=== PATIENT | female | born 1995 | race Caucasian/White ===

== ENCOUNTER → 2016-04-20 | Outpatient (CLI) | payer OTHER ==
[~2016-04-20] MED LIST: BUPIVACAINE 0.25% 30 ML (SENSORCAINE) VIAL ONE; CEPH-507 PO; HYDR-3812 PO; LIDOCAINE 1% INJ 20 ML (XYLOCAINE) VIAL ONE
--- NOTE | 2016-04-20 17:38 | Diagnostic Imaging Report ---
Exam: Two views of the left elbow. Indication: Left elbow pain and injury with shattered glass. Findings: No fracture, or dislocation is seen. There is a foreign body projecting in the posterior central aspect of the distal arm which appears to be within the soft tissues. It is probably within the subcutaneous fat. Other linear foreign bodies may represent glass seen deeper and probably within the triceps muscle. Impression: There are nonmetallic radiopaque foreign bodies seen in the posterior soft tissues of the distal arm, a dominant piece measuring 1.2 cm is probably within the subcutaneous fat and smaller linear lesions are projecting deeper and are possibly within the triceps muscle. Dictated by: Dictated on workstation # [id number]
== END ==
LOC: RAD 14:09
PROVIDERS: ATTEND Surgery
DX: M25.522 Pain in left elbow (principal)
CPT/HCPCS: 73080

== ENCOUNTER 2016-04-22 06:03 | Outpatient (CLI) | payer OTHER ==
[~2016-04-22] VITALS: Ht 167.6 cm; Wt 73.5 kg
[~2016-04-22 06:03] MED LIST changes: -BUPIVACAINE 0.25% 30 ML (SENSORCAINE) VIAL ONE; -LIDOCAINE 1% INJ 20 ML (XYLOCAINE) VIAL ONE
== END 2016-04-22 08:53 ==
LOC: PREOP 06:03
PROVIDERS: ATTEND Surgery
DX: Z01.818 Encounter for other preprocedural examination (principal); S40.852A Superficial foreign body of left upper arm, initial encounter

== ENCOUNTER 2016-04-23 12:32 | Day surgery (SDC) | payer OTHER ==
[~2016-04-23] VITALS: Ht 167.6 cm; Wt 73.5 kg
--- OUTSIDE RECORDS SUMMARY | 2016-04-23 12:35 | XMS REPORT | Continuity of Care Document ---
Author Author [facility] Organization [facility] Address Unknown Phone Unavailable Care Team Providers Care Service Shop Foreman Name Role Phone [place], [facility] PCP Insurance Providers Payer Name Policy Number Subscriber Name Relationship [employer] [id number] Lynne Aguirre 17 Self / Same As Patient Advance Directives Directive Response Recorded Date/Time Advance Directives No 04/22/16 8:45am Resuscitation Status Full Code 04/22/16 8:45am Problems Active Problems Medical Problem Onset Date Status Laceration of left upper arm with complication Unknown Acute Laceration of left upper arm with foreign body Unknown Acute Laceration of lower limb Unknown Acute Urinary tract infection Unknown Acute Medications No known medications. Social History Social History Problem Response Recorded Date/Time Alcohol Use Occasionally Uses 03/12/2015 11:53pm Recreational Drug Use No 03/12/2015 11:53pm Recent Foreign Travel No 04/22/2016 8:46am Recent Infectious Disease Exposure No 04/22/2016 8:46am Sexually Transmitted Disease No 04/22/2016 8:45am HIV/AIDS No 04/22/2016 8:45am Smoking Status Never a Smoker 04/22/2016 8:45am Recent Hopitalizations No 04/22/2016 8:45am Sexually Transmitted Disease No 04/22/2016 8:45am Query Response Start Date Stop Date Smoking Status Never a Smoker Hospital Discharge Instructions No hospital discharge instructions. Plan of Care Discharge Date 04/22/16 8:53am Prescriptions See Medication Section Functional Status No functional status results. Allergies, Adverse Reactions, Alerts No known allergies. Immunizations No immunization records. Vital Signs Acute Vital Signs Vital Response Date/Time Height (Feet) 5 feet 04/22/2016 8:45am Height (Inches) 6.00 inches 04/22/2016 8:45am Height (Calculated Centimeters) 167.805391 cm 04/22/2016 8:45am Weight (Pounds) 162 pounds 04/22/2016 8:45am Weight (Ounces) 0.0 oz 04/22/2016 8:45am Weight (Calculated Grams) 16346.97 gm 04/22/2016 8:45am Weight (Calculated Kilograms) 73.796190 kilograms 04/22/2016 8:45am Calculated BMI 26.2 04/22/2016 8:45am Results No known relevant diagnostic tests, laboratory data and/or discharge summary. Procedures No known history of procedures. Encounters Encounter Location Arrival/Admit Date Discharge/Depart Date Attending Provider Departed Clinic [facility] 04/22/16 6:03am 04/22/16 8: 53am DELIO THAKUR DO Registered Clinic [facility] 04/20/16 2:09pm DELIO THAKUR DO
--- OUTSIDE RECORDS SUMMARY | 2016-04-23 12:35 | XMS REPORT | Continuity of Care Document ---
Author Author [facility] Organization [facility] Address Unknown Phone Unavailable Care Team Providers Care Vending Technician Name Role Phone [place] PCP Insurance Providers Payer Name Policy Number Subscriber Name Relationship [employer] [id number] Lynne Aguirre 17 Self / Same As [...] 6.00 inches 04/22/2016 8:45am Height (Calculated Centimeters) 167.496813 cm 04/22/2016 8:45am Weight (Pounds) 162 pounds 04/22/2016 8:45am Weight (Ounces) 0.0 oz 04/22/2016 8:45am Weight (Calculated Grams) 80645.97 gm 04/22/2016 8:45am Weight (Calculated Kilograms) 73.900554 kilograms 04/22/2016 8:45am Calculated BMI 26.2 04/22/2016 8:45am Results No known relevant diagnostic tests, laboratory data and/or discharge summary. Procedures No known history of procedures. Encounters Encounter Location Arrival/Admit Date Discharge/Depart Date Attending Provider Departed Clinic [facility] 04/22/16 6:03am 04/22/16 8: 53am DELIO THAKUR DO Registered Clinic [facility] 04/20/16 2:09pm DELIO THAKUR DO
[2016-04-23] MEDS ORDERED: ceFAZolin 1,000 MG (ANCEF) VIAL ONE (12:47)
[2016-04-23] MEDS ORDERED: NORMAL SALINE (BAXTER MINI) 50 ML IV ONE (12:47)
[2016-04-23] MEDS ORDERED: ceFAZolin 1 GM/NS 50 ML IVPB IV ONE ×2 (13:00)
[2016-04-23] MEDS: LACTATED RINGERS 1,000 ML IV PRN ×2 (13:00→14:42)
[2016-04-23 13:06] VITALS: BP 136/75
[2016-04-23] MEDS ORDERED: fentaNYL INJECTION 100 MCG/2 ML AMP ONE (13:26)
[2016-04-23] MEDS ORDERED: ONDANSETRON 4 MG/2 ML (SDV) Z0FRAN ONE (13:26)
[2016-04-23] MEDS ORDERED: LACTATED RINGERS 1,000 ML IV ONE ×2 (13:26→14:35)
[2016-04-23] MEDS ORDERED: LIDOCAINE PF 2% 10 ML (XYLOCAINE) AMP ONE (13:26)
[2016-04-23] MEDS ORDERED: MIDAZOLAM 2 MG/2 ML (VERSED) VIAL ONE (13:26)
[2016-04-23] MEDS ORDERED: SEVOFLURANE (ULTANE) 15 ML INHAL SOLN ONE ×2 (13:26→14:29)
[2016-04-23] MEDS ORDERED: proPOfol 200 MG/20 ML (DIPRIVAN) VIAL IV ONE (13:26)
[2016-04-23] MEDS ORDERED: LIDOCAINE 1% INJ 20 ML (XYLOCAINE) VIAL ONE (13:44)
[2016-04-23] MEDS ORDERED: BUPIVACAINE 0.5% 30 ML (SENSORCAINE) VIAL ONE (13:44)
[2016-04-23] MEDS ORDERED: DEXAMETHASONE PF 10 MG/ML (DECADRON) VIAL ONE (14:08)
--- NOTE | 2016-04-23 14:39 | Progress Note-Post Operative ---
Post-Operative Progess Note Pre-Operative Diagnosis left upper extremity foreign body Post-Operative Diagnosis same Post-Op Procedure Note Date of Procedure: Apr 23, 2016 Name of Procedure: removal foreign body left upper arm Procedure Note/Findings see note Anesthesia Type general Estimated blood loss (mL): general Specimen(s) collected foreign body DELIO THAKUR DO Apr 23, 2016 14:39
[2016-04-23] MEDS ORDERED: MEPERIDINE (DEMEROL) INJ 50 MG/ML IVP PRN (14:45)
[2016-04-23] MEDS ORDERED: ONDANSETRON 4 MG/2 ML (SDV) Z0FRAN IVP PRN (14:45)
[2016-04-23] MEDS ORDERED: morphine INJ 10 MG/ML 1ML (SYR OR VIAL) IVP PRN (14:45)
--- NOTE | 2016-04-23 14:54 | Discharge Inst-Simple/Standard ---
Discharge Inst-Standard Patient Instructions/Follow Up Plan of Care/Instructions/FU: Follow up with Dr. Heard in 10-12 days Keep clean and dry. OTC ibuprofen or tylenol for pain. Activity as Tolerated: No Discharge Diet: No Restrictions Other Inst to Patient Follow up Appt: Make appointment for 10 - 12 days. Instructions: No lifting greater than 10 pounds. No strenuous activity. May shower in 24 hours, no tub bath or soaking. Use incentive spirometer at home as directed. No Smoking Skin/Wound Care: May remove bandages. Keep clean and dry. Symptoms to Report: Appetite Changes, Extremity Discoloration, Numbness/Tingling, Swelling Increased , Bleeding Excessive, Eyesight Changes, Pain Increased, Urine Color Change, Constipation(Persistent), Fever over 101 degree F, Pain/Pressure in chest, Urinating Difficulty, Cough Up/Vomit Blood, Heart Beat Irreg/Pounding, Pain/ Pressure in jaw, Vaginal Bleeding Increase, Cramps in feet or legs, Lightheadedness, Pain/Pressure in shoulder, Diarrhea(Persistent), Memory Changes Suddenly, Questions/Concerns, Weight gain consecutive days, Dizziness/ Fainting, Nausea/Vomiting, Shortness of Breath, Weight gain over 2 pounds If questions or concerns contact your physician Or seek help at emergency department. JARVIS SUBRAMANIAN APRN Apr 23, 2016 14:54
[2016-04-23 15:30] VITALS: BP 113/69
[2016-04-23 16:00] VITALS: BP 110/60
[2016-04-23 16:05] VITALS: BP 110/60
--- NOTE | 2016-04-23 18:27 | Diagnostic Imaging Report ---
Intraoperative views of the left humerus. INDICATION: Foreign body removal in the OR. Fluoroscopic time provided is 2 seconds. IMPRESSION: Radiopaque foreign body in the posterior aspect of the arm with an adjacent radiopaque marker is seen. Dictated by: Dictated on workstation # [id number]
--- NOTE | 2016-04-24 07:55 | OPERATIVE REPORT ---
PROCEDURE PHYSICIAN: DELIO THAKUR DATE OF PROCEDURE: 04/23/2016 PREOPERATIVE DIAGNOSIS: Foreign body, left upper extremity. POSTOPERATIVE DIAGNOSIS: Foreign body, left upper extremity. PROCEDURE: Removal of foreign body, left arm using fluoroscopy guidance. SURGEON: Félix. ANESTHESIA: General. ESTIMATED BLOOD LOSS: Minimal. COMPLICATIONS: None. INDICATIONS: The patient is a 21-year-old female who had previous laceration of left arm when the arm went through a glass window. The patient was fine for approximately the last year until the last few weeks when she started having pain in the left arm. She started having bruising. She had an MRI that was suspicious for foreign body. X-rays demonstrating foreign body in the left arm. She was explained risk and benefits of the procedure and wished to proceed with procedure. Consent was signed on the chart. PROCEDURE: The patient was taken operating suite. She was prepped and draped in sterile fashion. A surgical pause was performed. Fluoroscopy was used to locate foreign body. Once it was located, an incision was made over this area and cautery was used to dissect into the subcutaneous tissues. A smooth coal picker was able to be used to probe and was able to palpate the foreign body which was able to be grasped and removed. The wound was irrigated with copious amounts of irrigation. Fluoroscopy was used and there is no visualization of any remainder of the foreign body. Local anesthetic was used to infiltrate into the area of 0.5% Marcaine 1% lidocaine 50:50 ratio. The skin was then closed using 3-0 nylon in a simple interrupted fashion. The area was washed and dried. Sterile bandages were applied. The patient tolerated procedure well without complication. She was taken to the recovery room in stable condition. Job ID: [id number] Dictated Date: 04/23/2016 14:42:58 Intelligence Analyst Date: 04/24/2016 07:47:47 / [email or web address] SALAS
== END 2016-04-23 16:05 | disposition home or self-care (01) ==
LOC: SDC 12:32
PROVIDERS: ATTEND Surgery
DX: S40.852A Superficial foreign body of left upper arm, initial encounter (principal); W25.XXXA Contact with sharp glass, initial encounter; Y99.8 Other external cause status; Z18.81 Retained glass fragments
CPT/HCPCS: 84703; 87081